=== PATIENT | female | born 1970 ===

== ENCOUNTER 2021-09-09 11:55 | Emergency (ER) | payer SELFPAY | END 2021-09-09 13:25 | disposition home or self-care (01) | LOC: DL.ED 11:55 | DX: J39.8 Other specified diseases of upper respiratory tract (principal); Z88.0 Allergy status to penicillin; Z88.1 Allergy status to other antibiotic agents; Z88.8 Allergy status to other drugs, medicaments and biological substances | CPT/HCPCS: 94010; 99282; 99283-25 ==